=== PATIENT | male | born 1955 | race Hispanic/Latino ===

== ENCOUNTER → 2016-12-23 | Outpatient (CLI) | payer OTHER ==
[~2016-12-23] MED LIST: hydrochlorothiazide; lisinopril; simvastatin
== END | disposition home or self-care (01) ==
LOC: CDC 11:59
DX: Z01.818 Encounter for other preprocedural examination (principal); E66.01 Morbid (severe) obesity due to excess calories
CPT/HCPCS: 93000

== ENCOUNTER → 2017-02-28 | Outpatient (CLI) | payer OTHER ==
[~2017-02-28] VITALS: Ht 175.3 cm; Wt 147.7 kg
[~2017-02-28] MED LIST changes: +ALLEGRA ALLERG180 MG PO; +ATORVASTATIN CA20 MG PO; +CENTRUM SILVER1 EAC5 PO; +CLARINEX-D 121 EACH PO; +CLARITIN-D 121 EACH PO; +CYANOCOBALAM1000 MCG PO; +HYDROCHLOROTHIA25 MG PO; +HYDROCODON-ACE1 EAC7 PO; +LISINOPRIL40 MG PO; +LO-DOSE ASPIRIN81 M2 PO; +MECLIZINE HCL25 MG PO; +MELOXICAM15 MG PO; +METAMUCIL0.52 GM PO; +OSTEO BI-FLEX1 EAC3 PO; +PROAIR HFA8.5 GM IH; +SAW PALMETTO160 MG PO; +TAMSULOSIN HCL0.4 MG PO; +VITAMIN B-6100 MG PO
== END | disposition home or self-care (01) ==
LOC: AMB 12:16
DX: Z12.11 Encounter for screening for malignant neoplasm of colon (principal); D12.5 Benign neoplasm of sigmoid colon; D12.3 Benign neoplasm of transverse colon; K57.30 Diverticulosis of large intestine without perforation or abscess without bleeding; E66.01 Morbid (severe) obesity due to excess calories; Z68.42 Body mass index [BMI] 45.0-49.9, adult; J45.909 Unspecified asthma, uncomplicated; I10 Essential (primary) hypertension; E78.5 Hyperlipidemia, unspecified; G47.33 Obstructive sleep apnea (adult) (pediatric); E11.9 Type 2 diabetes mellitus without complications; Z87.891 Personal history of nicotine dependence; Z79.82 Long term (current) use of aspirin; R94.31 Abnormal electrocardiogram [ECG] [EKG]
CPT/HCPCS: 88305; J2250

== ENCOUNTER 2017-03-02 06:28 | Inpatient (IN) | payer OTHER ==
[~2017-03-02] VITALS: Ht 175.3 cm; Wt 147.7 kg
[~2017-03-02 06:28] MED LIST changes: -HYDROCODON-ACE1 EAC7 PO
[2017-03-02 07:12] VITALS: BP 125/60
[2017-03-02 12:38] VITALS: BP 146/76
[2017-03-02 16:16] VITALS: BP 138/70
[2017-03-02 19:36] VITALS: BP 147/74
[2017-03-02 23:34] VITALS: BP 141/68
[2017-03-03 04:14] VITALS: BP 145/73
[2017-03-03 06:58] LABS: HEMATOCRIT 39.1 % (38.0-50.0); MCH 28.5 PG (29.0-34.0); MCHC 32.7 G/DL (30.0-36.0); MCV 87.1 FL (86-99); MEAN PLAT.VOLUME 9.8 uM^3 (9.0-12.4); PLATELET COUNT 226 K/uL (156-360); RBC DIS.WIDTH-CV 13.5 % (11.8-14.6); RBC DIS.WIDTH-SD 42.7 % (39-53); RED BLOOD COUNT 4.49 M/uL (4.00-5.50)
[2017-03-03 07:10] LABS: WHITE BLOOD COUNT 10.2 K/uL (4.1-10.2)
[2017-03-03 07:18] LABS: ANION GAP 6 MEQ/L (2-14); CHLORIDE 104 MEQ/L (99-109); GFR ESTIMATE (CALCULATED) > 59 mL/min/; GLUCOSE 103 mg/dL (70-99); MAGNESIUM 1.9 mg/dl (1.3-2.7); SAMPLE HEMOLYSIS CHECK 0; SAMPLE ICTERIC CHECK 0; SAMPLE LIPEMIA CHECK 0; SODIUM 137 MEQ/L (136-147); UREA NITROGEN (BUN) 9 mg/dL (9-23)
[2017-03-03] MEDS ORDERED: HYDROCODON-ACE1 EAC7 PO (07:19)
[2017-03-03 08:05] VITALS: BP 176/83
== END 2017-03-03 09:54 | disposition home or self-care (01) | DRG 621 ==
LOC: 2SOUTH 06:28 → 2EASTP 12:26 → 2SOUTH 14:09 → 2EASTP 03-03 09:54
PROVIDERS: Surgery
DX: E66.01 Morbid (severe) obesity due to excess calories (principal); Z68.42 Body mass index [BMI] 45.0-49.9, adult; K44.9 Diaphragmatic hernia without obstruction or gangrene; I10 Essential (primary) hypertension; E78.5 Hyperlipidemia, unspecified; J45.909 Unspecified asthma, uncomplicated; G47.33 Obstructive sleep apnea (adult) (pediatric); E11.40 Type 2 diabetes mellitus with diabetic neuropathy, unspecified; M19.90 Unspecified osteoarthritis, unspecified site; H81.10 Benign paroxysmal vertigo, unspecified ear; Z79.82 Long term (current) use of aspirin
CPT/HCPCS: 80048; 82948; 83735; 84100; 85027; 94640; 99202; C9113; J0330; J0690; J1170; J1644; J1650; J1815; J1885; J2270; J2405; J2765; J3010; J3480; J7120; S0020

== ENCOUNTER 2017-05-18 20:22 | Emergency (ER) | payer OTHER ==
[~2017-05-18] VITALS: Ht 175.3 cm; Wt 119.1 kg
[~2017-05-18 20:22] MED LIST changes: +HYDROCODON-ACE1 EAC7 PO
[2017-05-18 21:09] LABS: ADD MIUA? YES; BILIRUBIN NEGATIVE; BLOOD LARGE; COLOR AMBER ((YELLOW)); GLUCOSE (STRIP) NEGATIVE; KETONES 80; LEUKOCYTES NEGATIVE; NITRITE NEGATIVE; PROTEIN (STRIP) 100; SPECIFIC GRAVITY 1.027 (1.000-1.030); UROBILINOGEN 0.2 MG/DL (0.2-1.0)
[2017-05-18 21:10] LABS: EOSINOPHIL (%) 1.5 % (0-5); EOSINOPHIL COUNT 0.1 K/uL (0-0.3); HEMATOCRIT 42.3 % (38.0-50.0); IMMATURE GRANULOCYTE (%) 0.2 % (0.0-0.7); INSTRUMENT ABS NEUTROPHIL CT 5.2 K/uL; LYMPHOCYTE COUNT 2.5 K/uL (1.0-2.8); MCH 29.3 PG (29.0-34.0); MCV 86.2 FL (86-99); MEAN PLAT.VOLUME 10.2 uM^3 (9.0-12.4); MONOCYTE (%) 9.3 % (3-12); MONOCYTE COUNT 0.8 K/uL (0-0.8); NEUTROPHIL (%) 59.5 % (45-76); NEUTROPHIL COUNT 5.2 K/uL (1.8-6.4); PLATELET COUNT 228 K/uL (156-360); RBC DIS.WIDTH-CV 14.8 % (11.8-14.6); RED BLOOD COUNT 4.91 M/uL (4.00-5.50); WHITE BLOOD COUNT 8.7 K/uL (4.1-10.2)
[2017-05-18 21:30] LABS: ANION GAP 11 MEQ/L (2-14); CHLORIDE 105 MEQ/L (99-109); DIRECT BILIRUBIN 0.3 mg/dL (0.0-0.3); POTASSIUM 3.8 MEQ/L (3.7-5.4); SAMPLE HEMOLYSIS CHECK 0; SAMPLE ICTERIC CHECK 0; SAMPLE LIPEMIA CHECK 0; SODIUM 139 MEQ/L (136-147); TOTAL BILIRUBIN 0.9 MG/DL (0.0-1.0)
[2017-05-18 21:36] LABS: ALKALINE PHOSPHATASE 61 IU/L (3-129); GFR ESTIMATE (CALCULATED) > 59 mL/min/; GLUCOSE 74 mg/dL (70-99); LIPASE 21 U/L (1.0-51.0); UREA NITROGEN (BUN) 17 mg/dL (9-23)
[2017-05-18 21:51] LABS: EPITHELIAL CELLS NONE SEEN /HPF; RED BLOOD CELLS TNTC /HPF (0-5); WHITE BLOOD CELLS 0-5 /HPF (0-5)
[2017-05-18 21:52] LABS: BACTERIA 1+ /HPF; CALCIUM OXALATE CRYSTALS 4+ /HPF; CRYSTALS PRESENT; MUCUS NONE SEEN /LPF; UCUL ADDED? NO
[2017-05-18] MEDS ORDERED: MOTRIN600 MG PO (23:21)
[2017-05-18 23:50] VITALS: BP 120/61
== END 2017-05-18 23:46 | disposition home or self-care (01) ==
LOC: EME 20:22
PROVIDERS: Emergency Medicine
DX: N20.2 Calculus of kidney with calculus of ureter (principal); J45.909 Unspecified asthma, uncomplicated; E78.5 Hyperlipidemia, unspecified; I10 Essential (primary) hypertension; Z79.82 Long term (current) use of aspirin; Z87.891 Personal history of nicotine dependence
CPT/HCPCS: 74176; 80048; 80076; 81003; 83690; 85025; 99281; 99284; J1885

== ENCOUNTER → 2017-11-01 | Outpatient (CLI) | payer OTHER ==
[~2017-11-01] MED LIST changes: +MOTRIN600 MG PO
== END | disposition home or self-care (01) ==
LOC: CDC 10:45
DX: Z01.810 Encounter for preprocedural cardiovascular examination (principal); R00.1 Bradycardia, unspecified; R94.31 Abnormal electrocardiogram [ECG] [EKG]
CPT/HCPCS: 93000

== ENCOUNTER 2017-11-14 07:05 | Day surgery (SDC) | payer OTHER ==
[~2017-11-14] VITALS: Ht 175.3 cm; Wt 91.6 kg
[~2017-11-14 07:05] MED LIST changes: +CALCIUM500 M4 PO
[2017-11-14 08:01] VITALS: BP 116/58
[2017-11-14] MEDS ORDERED: NORCO 5/3251 TABLET PO (11:00)
[2017-11-14 13:16] VITALS: BP 110/59
[2017-11-14 14:09] VITALS: BP 121/58
== END 2017-11-14 14:19 | disposition home or self-care (01) ==
LOC: SDC 07:05
PROC: 0WUF4JZ Supplement Abdominal Wall with Synthetic Substitute, Percutaneous Endoscopic Approach (ICD-10-PCS; principal; 2017-11-14)
DX: K43.2 Incisional hernia without obstruction or gangrene (principal); Z98.84 Bariatric surgery status; N40.0 Benign prostatic hyperplasia without lower urinary tract symptoms; I10 Essential (primary) hypertension; H81.10 Benign paroxysmal vertigo, unspecified ear; N62 Hypertrophy of breast; E78.00 Pure hypercholesterolemia, unspecified; J45.20 Mild intermittent asthma, uncomplicated; E66.01 Morbid (severe) obesity due to excess calories; Z87.891 Personal history of nicotine dependence; G47.33 Obstructive sleep apnea (adult) (pediatric); E11.9 Type 2 diabetes mellitus without complications; Z83.3 Family history of diabetes mellitus; Z82.5 Family history of asthma and other chronic lower respiratory diseases; Z82.0 Family history of epilepsy and other diseases of the nervous system; Z91.09 Other allergy status, other than to drugs and biological substances; Z91.040 Latex allergy status
CPT/HCPCS: 88302; C1781; J0690; J1100; J1170; J2250; J3010